=== PATIENT | male | born 1955 | race Two or more races ===

== ENCOUNTER 2018-07-19 14:00 | Outpatient (CLI) | payer MEDICARE, OTHER | END 2018-07-19 23:59 | disposition home or self-care (01) | LOC: MSC 14:00 | PROVIDERS: ATTEND Anesthesiology | DX: G89.4 Chronic pain syndrome (principal); M51.36 Other intervertebral disc degeneration, lumbar region; M51.26 Other intervertebral disc displacement, lumbar region; M47.27 Other spondylosis with radiculopathy, lumbosacral region; M17.11 Unilateral primary osteoarthritis, right knee; M40.299 Other kyphosis, site unspecified; M25.562 Pain in left knee; M25.9 Joint disorder, unspecified; I10 Essential (primary) hypertension; E78.5 Hyperlipidemia, unspecified; Z79.891 Long term (current) use of opiate analgesic; Z79.899 Other long term (current) drug therapy ==

== ENCOUNTER → 2018-08-16 | Outpatient (CLI) | payer MEDICARE, OTHER | END | disposition home or self-care (01) | LOC: MSC 13:33 | PROVIDERS: ATTEND Anesthesiology | DX: G89.4 Chronic pain syndrome (principal); M51.36 Other intervertebral disc degeneration, lumbar region; M51.26 Other intervertebral disc displacement, lumbar region; M47.27 Other spondylosis with radiculopathy, lumbosacral region; M62.830 Muscle spasm of back; M17.11 Unilateral primary osteoarthritis, right knee; M25.562 Pain in left knee; M25.9 Joint disorder, unspecified; Z79.891 Long term (current) use of opiate analgesic; Z79.899 Other long term (current) drug therapy ==

== ENCOUNTER 2018-09-20 13:00 | Outpatient (CLI) | payer MEDICARE, OTHER | END 2018-09-20 23:59 | disposition home or self-care (01) | LOC: MSC 13:00 | PROVIDERS: ATTEND Anesthesiology | DX: M51.36 Other intervertebral disc degeneration, lumbar region (principal); M40.299 Other kyphosis, site unspecified; M51.26 Other intervertebral disc displacement, lumbar region; M47.27 Other spondylosis with radiculopathy, lumbosacral region; M17.11 Unilateral primary osteoarthritis, right knee; G89.4 Chronic pain syndrome; M25.9 Joint disorder, unspecified; M62.830 Muscle spasm of back; Z79.891 Long term (current) use of opiate analgesic ==

== ENCOUNTER 2018-10-18 15:47 | Outpatient (CLI) | payer MEDICARE, OTHER | END 2018-10-18 23:59 | disposition home or self-care (01) | LOC: MSC 15:47 | PROVIDERS: ATTEND Anesthesiology | DX: M51.36 Other intervertebral disc degeneration, lumbar region (principal); M51.26 Other intervertebral disc displacement, lumbar region; M47.27 Other spondylosis with radiculopathy, lumbosacral region; M40.299 Other kyphosis, site unspecified; M62.830 Muscle spasm of back; G89.4 Chronic pain syndrome; M17.11 Unilateral primary osteoarthritis, right knee; M25.9 Joint disorder, unspecified; Z79.891 Long term (current) use of opiate analgesic; Z79.899 Other long term (current) drug therapy ==

== ENCOUNTER 2018-11-15 10:45 | Outpatient (CLI) | payer MEDICARE, OTHER | END 2018-11-15 23:59 | disposition home or self-care (01) | LOC: MSC 10:45 | PROVIDERS: ATTEND Anesthesiology | DX: G89.4 Chronic pain syndrome (principal); M54.5 Low back pain; M51.36 Other intervertebral disc degeneration, lumbar region; M40.299 Other kyphosis, site unspecified; M51.26 Other intervertebral disc displacement, lumbar region; M47.27 Other spondylosis with radiculopathy, lumbosacral region; M62.830 Muscle spasm of back; M17.11 Unilateral primary osteoarthritis, right knee; M25.561 Pain in right knee; M25.562 Pain in left knee; M25.9 Joint disorder, unspecified; Z79.899 Other long term (current) drug therapy ==

== ENCOUNTER 2018-12-27 09:22 | Outpatient (CLI) | payer MEDICARE, OTHER | END 2018-12-27 23:59 | disposition home or self-care (01) | LOC: MSC 09:22 | PROVIDERS: ATTEND Anesthesiology | DX: M51.36 Other intervertebral disc degeneration, lumbar region (principal); M51.26 Other intervertebral disc displacement, lumbar region; M40.299 Other kyphosis, site unspecified; M47.27 Other spondylosis with radiculopathy, lumbosacral region; M62.830 Muscle spasm of back; G89.4 Chronic pain syndrome; M17.11 Unilateral primary osteoarthritis, right knee; M25.562 Pain in left knee; M25.9 Joint disorder, unspecified; Z79.899 Other long term (current) drug therapy; Z79.1 Long term (current) use of non-steroidal anti-inflammatories (NSAID) ==

== ENCOUNTER 2019-02-27 07:57 | Day surgery (SDC) | payer MEDICARE, OTHER ==
[2019-02-27] MEDS ORDERED: IOHEXOL 50 ML IV ONE (10:09)
[2019-02-27] MEDS ORDERED: BUPIVACAINE 0.25% 75 MG/30 ML VIAL ONE (10:09)
[2019-02-27] MEDS ORDERED: methylPREDNISolone ACETATE 80 MG/ML VIAL ONE (10:09)
[2019-02-27] MEDS ORDERED: LIDOCAINE HCL/MPF 1% 30 ML VIAL IJ ONE (10:09)
[2019-02-27] MEDS ORDERED: HYDROCODONE/APAP 10/325MG 1 EA TABLET ONE (10:40)
== END 2019-02-27 11:00 | disposition home or self-care (01) ==
LOC: DS 07:57
PROVIDERS: ATTEND Anesthesiology
DX: M25.512 Pain in left shoulder (principal)
CPT/HCPCS: 20610; 73020; J1040; J3490; Q9967

== ENCOUNTER → 2019-03-28 | Outpatient (CLI) | payer MEDICARE, OTHER | END | disposition home or self-care (01) | LOC: MSC 09:00 | PROVIDERS: ATTEND Anesthesiology | DX: M51.36 Other intervertebral disc degeneration, lumbar region (principal); M51.26 Other intervertebral disc displacement, lumbar region; M47.27 Other spondylosis with radiculopathy, lumbosacral region; M62.830 Muscle spasm of back; M40.299 Other kyphosis, site unspecified; M17.11 Unilateral primary osteoarthritis, right knee; G89.4 Chronic pain syndrome; M25.562 Pain in left knee; M25.9 Joint disorder, unspecified; I10 Essential (primary) hypertension; E78.5 Hyperlipidemia, unspecified; Z79.891 Long term (current) use of opiate analgesic; Z79.899 Other long term (current) drug therapy; Z79.1 Long term (current) use of non-steroidal anti-inflammatories (NSAID) ==

== ENCOUNTER 2019-05-02 08:20 | Outpatient (CLI) | payer MEDICARE, OTHER | END 2019-05-02 23:59 | disposition home or self-care (01) | LOC: MSC 08:20 | PROVIDERS: ATTEND Anesthesiology | DX: M51.36 Other intervertebral disc degeneration, lumbar region (principal); M51.26 Other intervertebral disc displacement, lumbar region; M47.27 Other spondylosis with radiculopathy, lumbosacral region; M62.830 Muscle spasm of back; M40.299 Other kyphosis, site unspecified; G89.4 Chronic pain syndrome; M17.11 Unilateral primary osteoarthritis, right knee; M25.562 Pain in left knee; I10 Essential (primary) hypertension; E78.5 Hyperlipidemia, unspecified; Z79.891 Long term (current) use of opiate analgesic; Z79.1 Long term (current) use of non-steroidal anti-inflammatories (NSAID) ==

== ENCOUNTER 2019-07-04 08:10 | Outpatient (CLI) | payer MEDICARE, OTHER | END 2019-07-04 23:59 | disposition home or self-care (01) | LOC: MSC 08:10 | PROVIDERS: ATTEND Anesthesiology | DX: M51.36 Other intervertebral disc degeneration, lumbar region (principal); M51.26 Other intervertebral disc displacement, lumbar region; M47.27 Other spondylosis with radiculopathy, lumbosacral region; M62.830 Muscle spasm of back; M40.299 Other kyphosis, site unspecified; M19.012 Primary osteoarthritis, left shoulder; M17.11 Unilateral primary osteoarthritis, right knee; M25.562 Pain in left knee; G89.4 Chronic pain syndrome; M25.9 Joint disorder, unspecified; I10 Essential (primary) hypertension; E78.5 Hyperlipidemia, unspecified; Z79.891 Long term (current) use of opiate analgesic; Z79.1 Long term (current) use of non-steroidal anti-inflammatories (NSAID) ==

== ENCOUNTER 2019-08-08 08:31 | Outpatient (CLI) | payer MEDICARE, OTHER | END 2019-08-08 23:59 | disposition home or self-care (01) | LOC: MSC 08:31 | PROVIDERS: ATTEND Anesthesiology | DX: M19.012 Primary osteoarthritis, left shoulder (principal); M47.27 Other spondylosis with radiculopathy, lumbosacral region; M51.36 Other intervertebral disc degeneration, lumbar region; M51.26 Other intervertebral disc displacement, lumbar region; M62.830 Muscle spasm of back; M40.299 Other kyphosis, site unspecified; M17.11 Unilateral primary osteoarthritis, right knee; G89.4 Chronic pain syndrome; M25.562 Pain in left knee; I10 Essential (primary) hypertension; E78.5 Hyperlipidemia, unspecified; Z79.891 Long term (current) use of opiate analgesic; Z79.1 Long term (current) use of non-steroidal anti-inflammatories (NSAID); Z99.89 Dependence on other enabling machines and devices | CPT/HCPCS: 80305; G0463 ==

== ENCOUNTER 2019-09-12 09:50 | Outpatient (CLI) | payer MEDICARE, OTHER | END 2019-09-12 23:50 | disposition home or self-care (01) | LOC: MSC 09:50 | PROVIDERS: ATTEND Anesthesiology | DX: M19.012 Primary osteoarthritis, left shoulder (principal); M51.36 Other intervertebral disc degeneration, lumbar region; M51.26 Other intervertebral disc displacement, lumbar region; M47.27 Other spondylosis with radiculopathy, lumbosacral region; M40.299 Other kyphosis, site unspecified; M62.830 Muscle spasm of back; M17.11 Unilateral primary osteoarthritis, right knee; G89.4 Chronic pain syndrome; M25.562 Pain in left knee; M25.9 Joint disorder, unspecified; I10 Essential (primary) hypertension; E78.5 Hyperlipidemia, unspecified; Z79.891 Long term (current) use of opiate analgesic; Z79.1 Long term (current) use of non-steroidal anti-inflammatories (NSAID); Z99.89 Dependence on other enabling machines and devices ==

== ENCOUNTER 2019-10-10 08:00 | Outpatient (CLI) | payer MEDICARE, OTHER | END 2019-10-10 23:59 | disposition home or self-care (01) | LOC: MSC 08:00 | PROVIDERS: ATTEND Anesthesiology | DX: M19.012 Primary osteoarthritis, left shoulder (principal); M51.36 Other intervertebral disc degeneration, lumbar region; M51.26 Other intervertebral disc displacement, lumbar region; M47.27 Other spondylosis with radiculopathy, lumbosacral region; M62.830 Muscle spasm of back; M40.299 Other kyphosis, site unspecified; M17.11 Unilateral primary osteoarthritis, right knee; G89.4 Chronic pain syndrome; M25.562 Pain in left knee; M25.9 Joint disorder, unspecified; I10 Essential (primary) hypertension; E78.5 Hyperlipidemia, unspecified; Z79.891 Long term (current) use of opiate analgesic; Z79.1 Long term (current) use of non-steroidal anti-inflammatories (NSAID) ==

== ENCOUNTER → 2019-11-21 | Outpatient (CLI) | payer MEDICARE, OTHER | END | disposition home or self-care (01) | LOC: MSC 11:20 | PROVIDERS: ATTEND Anesthesiology | DX: M19.012 Primary osteoarthritis, left shoulder (principal); M17.11 Unilateral primary osteoarthritis, right knee; M25.562 Pain in left knee; M51.36 Other intervertebral disc degeneration, lumbar region; M51.26 Other intervertebral disc displacement, lumbar region; M40.299 Other kyphosis, site unspecified; M47.27 Other spondylosis with radiculopathy, lumbosacral region; M62.830 Muscle spasm of back; G89.4 Chronic pain syndrome; Z79.891 Long term (current) use of opiate analgesic; Z79.1 Long term (current) use of non-steroidal anti-inflammatories (NSAID) ==

== ENCOUNTER 2020-04-30 09:04 | Outpatient (CLI) | payer MEDICARE, OTHER | END 2020-04-30 23:59 | disposition home or self-care (01) | LOC: MSC 09:04 | PROVIDERS: ATTEND Anesthesiology | DX: M19.012 Primary osteoarthritis, left shoulder (principal); M17.11 Unilateral primary osteoarthritis, right knee; M51.36 Other intervertebral disc degeneration, lumbar region; M51.26 Other intervertebral disc displacement, lumbar region; M47.27 Other spondylosis with radiculopathy, lumbosacral region; M40.299 Other kyphosis, site unspecified; M62.830 Muscle spasm of back; G89.4 Chronic pain syndrome; M25.9 Joint disorder, unspecified; Z79.891 Long term (current) use of opiate analgesic ==

== ENCOUNTER → 2020-08-27 | Outpatient (CLI) | payer MEDICARE, OTHER | END | disposition home or self-care (01) | LOC: MSC 08:25 | PROVIDERS: ATTEND Anesthesiology | DX: M19.012 Primary osteoarthritis, left shoulder (principal); M51.36 Other intervertebral disc degeneration, lumbar region; M51.26 Other intervertebral disc displacement, lumbar region; M47.27 Other spondylosis with radiculopathy, lumbosacral region; M40.299 Other kyphosis, site unspecified; M62.830 Muscle spasm of back; G89.4 Chronic pain syndrome; M17.11 Unilateral primary osteoarthritis, right knee; M25.562 Pain in left knee; Z79.1 Long term (current) use of non-steroidal anti-inflammatories (NSAID); Z79.891 Long term (current) use of opiate analgesic | CPT/HCPCS: 73030; G0463 ==

== ENCOUNTER 2020-10-01 09:25 | Outpatient (CLI) | payer MEDICARE, OTHER | END 2020-10-01 23:59 | disposition home or self-care (01) | LOC: MSC 09:25 | PROVIDERS: ATTEND Anesthesiology | DX: M17.11 Unilateral primary osteoarthritis, right knee (principal); M19.012 Primary osteoarthritis, left shoulder; M51.36 Other intervertebral disc degeneration, lumbar region; M51.26 Other intervertebral disc displacement, lumbar region; M47.27 Other spondylosis with radiculopathy, lumbosacral region; M62.830 Muscle spasm of back; M40.299 Other kyphosis, site unspecified; G89.4 Chronic pain syndrome; M79.2 Neuralgia and neuritis, unspecified; Z79.891 Long term (current) use of opiate analgesic; Z79.1 Long term (current) use of non-steroidal anti-inflammatories (NSAID) ==

== ENCOUNTER 2020-10-04 06:53 | Outpatient (CLI) | payer MEDICARE, OTHER | END 2020-10-04 23:59 | disposition home or self-care (01) | LOC: LAB 06:53 | PROVIDERS: ATTEND Anesthesiology | DX: Z01.812 Encounter for preprocedural laboratory examination (principal); Z20.822 Contact with and (suspected) exposure to COVID-19 | CPT/HCPCS: C9803; U0003 ==

== ENCOUNTER 2020-10-08 07:17 | Day surgery (SDC) | payer MEDICARE, OTHER ==
[2020-10-08] MEDS ORDERED: IOHEXOL 240MG/ML 50 ML IV ONE (07:30)
--- NOTE | 2020-10-08 07:30 | NUR ---
MS RN RECEIVED PATIENT GOING FOR DAY SX, RIGHT KNEE STEROID INJECTION W/ ARTHROGRAM TODAY.
[2020-10-08] MEDS ORDERED: ANESTHESIA TRAY IN PYXIS 1 EA TRAY MC ONE (07:31)
[2020-10-08] MEDS ORDERED: methylPREDNISolone ACETATE 80 MG/ML VIAL ONE (07:31)
[2020-10-08] MEDS ORDERED: DEXAMETHASONE SOD PHOSPHATE 10 MG/ML VIAL ONE (07:31)
[2020-10-08] MEDS ORDERED: BUPIVACAINE 0.25% 75 MG/30 ML VIAL ONE (07:31)
[2020-10-08] MEDS ORDERED: PANT40TA49 PO (07:46)
[2020-10-08] MEDS ORDERED: ATOR20TA PO (07:46)
[2020-10-08] MEDS ORDERED: MELO-107 PO (07:46)
[2020-10-08] MEDS ORDERED: HYDR-3980 PO (07:46)
[2020-10-08] MEDS ORDERED: CARV6.252 PO (07:46)
[2020-10-08] MEDS ORDERED: TAMS-12 PO (07:46)
--- NOTE | 2020-10-08 08:10 | NUR ---
MS RN PATIENT PREPARED FOR SX TODAY, WENT DOWN FOR SX.
--- NOTE | 2020-10-08 11:00 | NUR ---
MS RN PATIENT CAME BACK FROM PROCEDURE, WANTS TO GO HOME.
--- NOTE | 2020-10-08 11:30 | NUR ---
MS RN PATIENT MONITORED AND STABLE, DISCHARGE INSTRUCTIONS GIVEN AND UNDERSTOOD, WENT HOME,ALL NEEDS ATTENDED.
== END 2020-10-08 18:00 | disposition home or self-care (01) ==
LOC: DS 07:17 → MED 07:21 → UNDOADMIN 07:21 → UNDODISIN 10:30 → DS 18:00
PROVIDERS: ATTEND Anesthesiology
DX: M17.11 Unilateral primary osteoarthritis, right knee (principal); M19.012 Primary osteoarthritis, left shoulder; E66.3 Overweight; I10 Essential (primary) hypertension; K21.9 Gastro-esophageal reflux disease without esophagitis; Z98.890 Other specified postprocedural states; Z79.899 Other long term (current) drug therapy
CPT/HCPCS: 73560-TC; G0378; J1040; J1100; J2704; J3490; Q9966

== ENCOUNTER 2020-11-05 08:52 | Outpatient (CLI) | payer MEDICARE, OTHER ==
[~2020-11-05 08:52] MED LIST: ATOR20TA PO; CARV6.252 PO; HYDR-3980 PO; MELO-107 PO; PANT40TA49 PO; TAMS-12 PO
== END 2020-11-05 23:59 | disposition home or self-care (01) ==
LOC: MSC 08:52
PROVIDERS: ATTEND Anesthesiology
DX: M17.11 Unilateral primary osteoarthritis, right knee (principal); M19.012 Primary osteoarthritis, left shoulder; M47.27 Other spondylosis with radiculopathy, lumbosacral region; M51.36 Other intervertebral disc degeneration, lumbar region; M51.26 Other intervertebral disc displacement, lumbar region; M62.830 Muscle spasm of back; M40.299 Other kyphosis, site unspecified; G89.4 Chronic pain syndrome; M25.562 Pain in left knee; M25.9 Joint disorder, unspecified; I10 Essential (primary) hypertension; E78.5 Hyperlipidemia, unspecified; Z79.891 Long term (current) use of opiate analgesic; Z79.1 Long term (current) use of non-steroidal anti-inflammatories (NSAID); Z72.89 Other problems related to lifestyle; Z87.891 Personal history of nicotine dependence

== ENCOUNTER 2020-12-10 11:23 | Outpatient (CLI) | payer MEDICARE, OTHER | END 2020-12-10 23:59 | disposition home or self-care (01) | LOC: MSC 11:23 | PROVIDERS: ATTEND Anesthesiology | DX: M19.012 Primary osteoarthritis, left shoulder (principal); G89.4 Chronic pain syndrome; M51.36 Other intervertebral disc degeneration, lumbar region; M51.26 Other intervertebral disc displacement, lumbar region; M47.27 Other spondylosis with radiculopathy, lumbosacral region; M40.299 Other kyphosis, site unspecified; M62.830 Muscle spasm of back; M25.561 Pain in right knee; M25.562 Pain in left knee; M25.9 Joint disorder, unspecified; I10 Essential (primary) hypertension; E78.5 Hyperlipidemia, unspecified; Z79.891 Long term (current) use of opiate analgesic; Z79.1 Long term (current) use of non-steroidal anti-inflammatories (NSAID) ==

== ENCOUNTER 2020-12-20 12:28 | Outpatient (CLI) | payer MEDICARE, OTHER | END 2020-12-20 23:59 | disposition home or self-care (01) | LOC: LAB 12:28 | PROVIDERS: ATTEND Anesthesiology | DX: Z01.812 Encounter for preprocedural laboratory examination (principal); Z20.822 Contact with and (suspected) exposure to COVID-19 | CPT/HCPCS: C9803; U0003 ==

== ENCOUNTER 2020-12-24 10:27 | Day surgery (SDC) | payer MEDICARE, OTHER ==
[2020-12-24] MEDS ORDERED: BUPIVACAINE 0.25% 75 MG/30 ML VIAL ONE (12:01)
[2020-12-24] MEDS ORDERED: LIDOCAINE HCL/MPF 1% 30 ML VIAL IJ ONE (12:01)
[2020-12-24] MEDS ORDERED: methylPREDNISolone ACETATE 80 MG/ML VIAL ONE (12:01)
[2020-12-24] MEDS ORDERED: IOHEXOL 240MG/ML 50 ML IV ONE (12:01)
[2020-12-24] MEDS ORDERED: MIDAZOLAM HCL 2 MG/2ML VIAL ONE (12:06)
[2020-12-24] MEDS ORDERED: FENTANYL PF 100MCG/2ML AMPUL ONE (12:06)
== END 2020-12-24 13:55 | disposition home or self-care (01) ==
LOC: DS 10:27
PROVIDERS: ATTEND Anesthesiology
DX: M19.012 Primary osteoarthritis, left shoulder (principal); G89.4 Chronic pain syndrome; M51.36 Other intervertebral disc degeneration, lumbar region; M40.299 Other kyphosis, site unspecified; M51.26 Other intervertebral disc displacement, lumbar region; M62.830 Muscle spasm of back; M47.27 Other spondylosis with radiculopathy, lumbosacral region; M25.561 Pain in right knee; M17.11 Unilateral primary osteoarthritis, right knee; M25.562 Pain in left knee; Z79.899 Other long term (current) drug therapy; I10 Essential (primary) hypertension; E78.5 Hyperlipidemia, unspecified; Z87.891 Personal history of nicotine dependence
CPT/HCPCS: 23350; 73020; 73040; 77002; J1040; J2250; J2704; J3490; J7030; J7120; Q9966; J3010

== ENCOUNTER 2021-01-07 11:50 | Outpatient (CLI) | payer MEDICARE, OTHER | END 2021-01-07 23:59 | disposition home or self-care (01) | LOC: MSC 11:50 | PROVIDERS: ATTEND Anesthesiology | DX: M17.11 Unilateral primary osteoarthritis, right knee (principal); G89.4 Chronic pain syndrome; M51.36 Other intervertebral disc degeneration, lumbar region; M51.26 Other intervertebral disc displacement, lumbar region; M47.27 Other spondylosis with radiculopathy, lumbosacral region; M40.299 Other kyphosis, site unspecified; M62.830 Muscle spasm of back; M25.562 Pain in left knee; M25.9 Joint disorder, unspecified; M19.012 Primary osteoarthritis, left shoulder; Z79.1 Long term (current) use of non-steroidal anti-inflammatories (NSAID); Z87.891 Personal history of nicotine dependence; Z72.89 Other problems related to lifestyle ==

== ENCOUNTER 2021-01-23 13:20 | Outpatient (CLI) | payer MEDICARE, OTHER | END 2021-01-23 23:59 | disposition home or self-care (01) | LOC: LAB 13:20 | PROVIDERS: ATTEND Anesthesiology | DX: Z01.812 Encounter for preprocedural laboratory examination (principal); Z20.822 Contact with and (suspected) exposure to COVID-19 | CPT/HCPCS: C9803; U0003 ==

== ENCOUNTER → 2021-02-04 | Outpatient (CLI) | payer MEDICARE, OTHER | END | disposition home or self-care (01) | LOC: MSC 11:40 | PROVIDERS: ATTEND Anesthesiology | DX: M17.11 Unilateral primary osteoarthritis, right knee (principal); M19.012 Primary osteoarthritis, left shoulder; G89.4 Chronic pain syndrome; M51.36 Other intervertebral disc degeneration, lumbar region; M51.26 Other intervertebral disc displacement, lumbar region; M47.27 Other spondylosis with radiculopathy, lumbosacral region; M40.299 Other kyphosis, site unspecified; M62.830 Muscle spasm of back; M25.9 Joint disorder, unspecified; Z72.89 Other problems related to lifestyle; Z87.891 Personal history of nicotine dependence; Z79.891 Long term (current) use of opiate analgesic; Z79.1 Long term (current) use of non-steroidal anti-inflammatories (NSAID) ==

== ENCOUNTER → 2021-03-04 | Outpatient (CLI) | payer MEDICARE, OTHER | END | disposition home or self-care (01) | LOC: MSC 10:55 | PROVIDERS: ATTEND Anesthesiology | DX: M17.11 Unilateral primary osteoarthritis, right knee (principal); M25.562 Pain in left knee; M19.012 Primary osteoarthritis, left shoulder; G89.4 Chronic pain syndrome; M51.36 Other intervertebral disc degeneration, lumbar region; M51.26 Other intervertebral disc displacement, lumbar region; M47.27 Other spondylosis with radiculopathy, lumbosacral region; M40.299 Other kyphosis, site unspecified; M62.830 Muscle spasm of back; M25.9 Joint disorder, unspecified; Z79.891 Long term (current) use of opiate analgesic; Z79.1 Long term (current) use of non-steroidal anti-inflammatories (NSAID); Z72.89 Other problems related to lifestyle; Z87.891 Personal history of nicotine dependence ==

== ENCOUNTER 2021-04-29 09:16 | Outpatient (CLI) | payer MEDICARE, OTHER | END 2021-04-29 23:59 | disposition home or self-care (01) | LOC: MSC 09:16 | PROVIDERS: ATTEND Anesthesiology | DX: G89.4 Chronic pain syndrome (principal); M17.11 Unilateral primary osteoarthritis, right knee; M25.562 Pain in left knee; M19.012 Primary osteoarthritis, left shoulder; M51.36 Other intervertebral disc degeneration, lumbar region; M51.26 Other intervertebral disc displacement, lumbar region; M47.27 Other spondylosis with radiculopathy, lumbosacral region; M40.299 Other kyphosis, site unspecified; M62.830 Muscle spasm of back; M25.9 Joint disorder, unspecified; Z79.891 Long term (current) use of opiate analgesic; Z79.1 Long term (current) use of non-steroidal anti-inflammatories (NSAID); Z72.89 Other problems related to lifestyle; Z87.891 Personal history of nicotine dependence ==

== ENCOUNTER 2021-05-27 08:47 | Outpatient (CLI) | payer MEDICARE, OTHER | END 2021-05-27 23:59 | disposition home or self-care (01) | LOC: MSC 08:47 | PROVIDERS: ATTEND Anesthesiology | DX: M19.012 Primary osteoarthritis, left shoulder (principal); G89.4 Chronic pain syndrome; M51.36 Other intervertebral disc degeneration, lumbar region; M51.26 Other intervertebral disc displacement, lumbar region; M47.27 Other spondylosis with radiculopathy, lumbosacral region; M40.299 Other kyphosis, site unspecified; M62.830 Muscle spasm of back; M17.11 Unilateral primary osteoarthritis, right knee; M25.562 Pain in left knee; M25.9 Joint disorder, unspecified; Z79.891 Long term (current) use of opiate analgesic; Z79.1 Long term (current) use of non-steroidal anti-inflammatories (NSAID) ==

== ENCOUNTER 2021-05-30 11:16 | Outpatient (CLI) | payer MEDICARE, OTHER | END 2021-05-30 23:59 | disposition home or self-care (01) | LOC: LAB 11:16 | PROVIDERS: ATTEND Anesthesiology | DX: Z75.3 Unavailability and inaccessibility of health-care facilities (principal) ==

== ENCOUNTER 2021-06-24 08:50 | Outpatient (CLI) | payer MEDICARE, OTHER | END 2021-06-24 23:59 | disposition home or self-care (01) | LOC: MSC 08:50 | PROVIDERS: ATTEND Anesthesiology | DX: G89.4 Chronic pain syndrome (principal); M51.36 Other intervertebral disc degeneration, lumbar region; M51.26 Other intervertebral disc displacement, lumbar region; M47.27 Other spondylosis with radiculopathy, lumbosacral region; M40.299 Other kyphosis, site unspecified; M62.830 Muscle spasm of back; M17.11 Unilateral primary osteoarthritis, right knee; M25.562 Pain in left knee; M19.012 Primary osteoarthritis, left shoulder; M25.9 Joint disorder, unspecified; Z79.891 Long term (current) use of opiate analgesic; Z79.1 Long term (current) use of non-steroidal anti-inflammatories (NSAID); Z79.899 Other long term (current) drug therapy; Z72.89 Other problems related to lifestyle; Z87.891 Personal history of nicotine dependence ==

== ENCOUNTER 2021-07-22 09:50 | Outpatient (CLI) | payer MEDICARE, OTHER | END 2021-07-22 23:59 | disposition home or self-care (01) | LOC: MSC 09:50 | PROVIDERS: ATTEND Anesthesiology | DX: G89.4 Chronic pain syndrome (principal); M51.36 Other intervertebral disc degeneration, lumbar region; M51.26 Other intervertebral disc displacement, lumbar region; M47.27 Other spondylosis with radiculopathy, lumbosacral region; M40.299 Other kyphosis, site unspecified; M62.830 Muscle spasm of back; M17.11 Unilateral primary osteoarthritis, right knee; M25.562 Pain in left knee; M19.012 Primary osteoarthritis, left shoulder; Z79.891 Long term (current) use of opiate analgesic; Z79.1 Long term (current) use of non-steroidal anti-inflammatories (NSAID); M25.9 Joint disorder, unspecified; Z79.899 Other long term (current) drug therapy; Z72.89 Other problems related to lifestyle; Z87.891 Personal history of nicotine dependence ==

== ENCOUNTER 2021-08-26 09:30 | Outpatient (CLI) | payer MEDICARE, OTHER | END 2021-08-26 23:59 | disposition home or self-care (01) | LOC: MSC 09:30 | PROVIDERS: ATTEND Anesthesiology | DX: M47.27 Other spondylosis with radiculopathy, lumbosacral region (principal); M51.36 Other intervertebral disc degeneration, lumbar region; M51.26 Other intervertebral disc displacement, lumbar region; M40.299 Other kyphosis, site unspecified; M62.830 Muscle spasm of back; G89.4 Chronic pain syndrome; M17.11 Unilateral primary osteoarthritis, right knee; M19.012 Primary osteoarthritis, left shoulder; M25.9 Joint disorder, unspecified; Z79.891 Long term (current) use of opiate analgesic; Z95.5 Presence of coronary angioplasty implant and graft; I25.2 Old myocardial infarction; Z87.891 Personal history of nicotine dependence; Z72.89 Other problems related to lifestyle; Z79.899 Other long term (current) drug therapy ==

== ENCOUNTER 2021-09-23 09:41 | Outpatient (CLI) | payer MEDICARE, OTHER | END 2021-09-23 23:59 | disposition home or self-care (01) | LOC: MSC 09:41 | PROVIDERS: ATTEND Anesthesiology | DX: M51.36 Other intervertebral disc degeneration, lumbar region (principal); M51.26 Other intervertebral disc displacement, lumbar region; M47.27 Other spondylosis with radiculopathy, lumbosacral region; M40.299 Other kyphosis, site unspecified; M62.830 Muscle spasm of back; G89.4 Chronic pain syndrome; M17.11 Unilateral primary osteoarthritis, right knee; M25.562 Pain in left knee; M19.012 Primary osteoarthritis, left shoulder; M25.9 Joint disorder, unspecified; Z76.0 Encounter for issue of repeat prescription; Z79.891 Long term (current) use of opiate analgesic; Z79.1 Long term (current) use of non-steroidal anti-inflammatories (NSAID) ==

== ENCOUNTER → 2021-10-28 | Outpatient (CLI) | payer MEDICARE, OTHER | END | disposition home or self-care (01) | LOC: MSC 11:30 | PROVIDERS: ATTEND Anesthesiology | DX: M51.36 Other intervertebral disc degeneration, lumbar region (principal); M51.26 Other intervertebral disc displacement, lumbar region; M47.27 Other spondylosis with radiculopathy, lumbosacral region; M40.299 Other kyphosis, site unspecified; M62.830 Muscle spasm of back; G89.4 Chronic pain syndrome; M25.9 Joint disorder, unspecified; M17.11 Unilateral primary osteoarthritis, right knee; M25.562 Pain in left knee; M19.012 Primary osteoarthritis, left shoulder; Z79.891 Long term (current) use of opiate analgesic; Z79.1 Long term (current) use of non-steroidal anti-inflammatories (NSAID); Z72.89 Other problems related to lifestyle; Z87.891 Personal history of nicotine dependence ==

== ENCOUNTER 2021-12-02 11:05 | Outpatient (CLI) | payer MEDICARE, OTHER | END 2021-12-02 23:59 | disposition home or self-care (01) | LOC: MSC 11:05 | PROVIDERS: ATTEND Anesthesiology | DX: G89.4 Chronic pain syndrome (principal); M47.27 Other spondylosis with radiculopathy, lumbosacral region; M51.36 Other intervertebral disc degeneration, lumbar region; M51.26 Other intervertebral disc displacement, lumbar region; M40.299 Other kyphosis, site unspecified; M62.830 Muscle spasm of back; M25.9 Joint disorder, unspecified; M17.11 Unilateral primary osteoarthritis, right knee; M25.562 Pain in left knee; M19.012 Primary osteoarthritis, left shoulder; Z79.891 Long term (current) use of opiate analgesic; Z79.1 Long term (current) use of non-steroidal anti-inflammatories (NSAID); Z95.5 Presence of coronary angioplasty implant and graft; Z87.891 Personal history of nicotine dependence ==

== ENCOUNTER 2022-02-03 10:52 | Outpatient (CLI) | payer MEDICARE, OTHER | END 2022-02-03 23:59 | disposition home or self-care (01) | LOC: MSC 10:52 | PROVIDERS: ATTEND Anesthesiology | DX: G89.4 Chronic pain syndrome (principal); M51.36 Other intervertebral disc degeneration, lumbar region; M51.26 Other intervertebral disc displacement, lumbar region; M47.27 Other spondylosis with radiculopathy, lumbosacral region; M40.299 Other kyphosis, site unspecified; M62.830 Muscle spasm of back; M17.11 Unilateral primary osteoarthritis, right knee; M25.562 Pain in left knee; M19.012 Primary osteoarthritis, left shoulder; M25.9 Joint disorder, unspecified; Z79.891 Long term (current) use of opiate analgesic; Z79.1 Long term (current) use of non-steroidal anti-inflammatories (NSAID); Z95.5 Presence of coronary angioplasty implant and graft ==

== ENCOUNTER 2022-03-10 10:56 | Outpatient (CLI) | payer MEDICARE, OTHER | END 2022-03-10 23:59 | disposition home or self-care (01) | LOC: MSC 10:56 | PROVIDERS: ATTEND Anesthesiology | DX: M51.36 Other intervertebral disc degeneration, lumbar region (principal); M51.26 Other intervertebral disc displacement, lumbar region; M47.27 Other spondylosis with radiculopathy, lumbosacral region; M40.299 Other kyphosis, site unspecified; M62.830 Muscle spasm of back; M17.11 Unilateral primary osteoarthritis, right knee; M25.562 Pain in left knee; M19.012 Primary osteoarthritis, left shoulder; M25.9 Joint disorder, unspecified; Z95.5 Presence of coronary angioplasty implant and graft; Z87.891 Personal history of nicotine dependence; Z79.891 Long term (current) use of opiate analgesic; Z79.1 Long term (current) use of non-steroidal anti-inflammatories (NSAID) ==

== ENCOUNTER 2022-04-14 09:30 | Outpatient (CLI) | payer MEDICARE, OTHER | END 2022-04-14 23:59 | disposition home or self-care (01) | LOC: MSC 09:30 | PROVIDERS: ATTEND Anesthesiology | DX: M51.36 Other intervertebral disc degeneration, lumbar region (principal); M51.26 Other intervertebral disc displacement, lumbar region; M47.27 Other spondylosis with radiculopathy, lumbosacral region; M40.299 Other kyphosis, site unspecified; M62.830 Muscle spasm of back; G89.4 Chronic pain syndrome; M17.11 Unilateral primary osteoarthritis, right knee; M25.562 Pain in left knee; M25.9 Joint disorder, unspecified; M25.512 Pain in left shoulder; Z79.891 Long term (current) use of opiate analgesic; Z79.899 Other long term (current) drug therapy ==

== ENCOUNTER 2022-06-16 09:46 | Outpatient (CLI) | payer MEDICARE, OTHER | END 2022-06-16 23:59 | disposition home or self-care (01) | LOC: MSC 09:46 | PROVIDERS: ATTEND Anesthesiology | DX: G89.4 Chronic pain syndrome (principal); M51.36 Other intervertebral disc degeneration, lumbar region; M51.26 Other intervertebral disc displacement, lumbar region; M47.27 Other spondylosis with radiculopathy, lumbosacral region; M40.299 Other kyphosis, site unspecified; M62.830 Muscle spasm of back; M25.9 Joint disorder, unspecified; M17.11 Unilateral primary osteoarthritis, right knee; M25.562 Pain in left knee; M19.012 Primary osteoarthritis, left shoulder; Z79.891 Long term (current) use of opiate analgesic; Z79.899 Other long term (current) drug therapy; Z95.5 Presence of coronary angioplasty implant and graft ==

== ENCOUNTER 2022-07-21 11:23 | Outpatient (CLI) | payer MEDICARE, OTHER | END 2022-07-21 23:59 | disposition home or self-care (01) | LOC: MSC 11:23 | PROVIDERS: ATTEND Anesthesiology | DX: G89.4 Chronic pain syndrome (principal); M51.36 Other intervertebral disc degeneration, lumbar region; M51.26 Other intervertebral disc displacement, lumbar region; M47.27 Other spondylosis with radiculopathy, lumbosacral region; M40.299 Other kyphosis, site unspecified; M62.830 Muscle spasm of back; M25.9 Joint disorder, unspecified; M17.11 Unilateral primary osteoarthritis, right knee; M25.562 Pain in left knee; M19.012 Primary osteoarthritis, left shoulder; Z79.891 Long term (current) use of opiate analgesic; Z79.899 Other long term (current) drug therapy; Z95.5 Presence of coronary angioplasty implant and graft ==

== ENCOUNTER 2022-08-18 12:44 | Outpatient (CLI) | payer MEDICARE, OTHER | END 2022-08-18 23:59 | disposition home or self-care (01) | LOC: MSC 12:44 | PROVIDERS: ATTEND Anesthesiology | DX: G89.4 Chronic pain syndrome (principal); M51.36 Other intervertebral disc degeneration, lumbar region; M51.26 Other intervertebral disc displacement, lumbar region; M47.27 Other spondylosis with radiculopathy, lumbosacral region; M40.299 Other kyphosis, site unspecified; M62.830 Muscle spasm of back; M17.11 Unilateral primary osteoarthritis, right knee; M25.562 Pain in left knee; M19.012 Primary osteoarthritis, left shoulder; M25.9 Joint disorder, unspecified; Z79.891 Long term (current) use of opiate analgesic; Z79.899 Other long term (current) drug therapy ==

== ENCOUNTER 2022-12-08 09:29 | Outpatient (CLI) | payer MEDICARE, OTHER | END 2022-12-08 23:59 | disposition home or self-care (01) | LOC: MSC 09:29 | PROVIDERS: ATTEND Anesthesiology | DX: G89.4 Chronic pain syndrome (principal); M51.36 Other intervertebral disc degeneration, lumbar region; M51.26 Other intervertebral disc displacement, lumbar region; M47.27 Other spondylosis with radiculopathy, lumbosacral region; M40.299 Other kyphosis, site unspecified; M62.830 Muscle spasm of back; M17.11 Unilateral primary osteoarthritis, right knee; M25.562 Pain in left knee; M25.9 Joint disorder, unspecified; M19.012 Primary osteoarthritis, left shoulder; Z79.891 Long term (current) use of opiate analgesic; Z79.1 Long term (current) use of non-steroidal anti-inflammatories (NSAID) ==

== ENCOUNTER 2023-12-21 10:06 | Outpatient (CLI) | payer MEDICARE, OTHER | END 2023-12-21 23:59 | disposition home or self-care (01) | LOC: MSC 10:06 | PROVIDERS: ATTEND Anesthesiology | DX: G89.4 Chronic pain syndrome (principal); Z79.891 Long term (current) use of opiate analgesic; M51.36 Other intervertebral disc degeneration, lumbar region; M51.26 Other intervertebral disc displacement, lumbar region; M47.27 Other spondylosis with radiculopathy, lumbosacral region; M62.830 Muscle spasm of back; M25.9 Joint disorder, unspecified; M17.11 Unilateral primary osteoarthritis, right knee; M25.562 Pain in left knee; M19.012 Primary osteoarthritis, left shoulder; M40.299 Other kyphosis, site unspecified ==